=== PATIENT | male | born 2000 | race Caucasian/White ===

== ENCOUNTER → 2022-02-18 12:03 | Outpatient (CLI) | payer OTHER, SELFPAY ==
--- NOTE | 2022-02-18 12:11 | XR_ITS ---
FINAL REPORT CLINICAL HISTORY: L HIP PAIN, broken femur in 2018, no recent injury FINDINGS: LEFT HIP Two views of the left hip including an AP pelvis demonstrate no acute fracture or dislocation. The joint spaces are preserved. The visualized bony structures are well aligned. An IM gabbi is present in the left femur. No soft tissue abnormality is seen. IMPRESSION: No acute bony abnormality. Reviewed, Interpreted and Dictated by Hollis Matthew MD Transcribed by Melinda Reeves Authenticated and [facility]
--- NOTE | 2022-02-18 12:11 | XR_ITS ---
FINAL REPORT CLINICAL HISTORY: HX L FEMUR FX 2018 FINDINGS: LEFT FEMUR 2 views were obtained. There is no acute fracture or dislocation. An intramedullary gabbi is seen securing a healed fracture deformity of the mid and distal femoral diaphysis. The knee joint space is preserved. There is no soft tissue abnormality. IMPRESSION: No acute bony abnormality. Reviewed, Interpreted and Dictated by Hollis Matthew MD Transcribed by Melinda Reeves Authenticated and [facility]
== END ==
PROVIDERS: PCP Internal Medicine; Visit Provider Internal Medicine
DX: M25.552 Pain in left hip (principal); Z87.81 Personal history of (healed) traumatic fracture
CPT/HCPCS: 73502; 73552

== ENCOUNTER → 2022-05-06 12:42 | Outpatient (CLI) | payer OTHER, SELFPAY ==
[2022-05-06 13:22] LABS: Strep Scrn Group A (Rapid) Negative (Negative)
== END ==
PROVIDERS: PCP Internal Medicine; Visit Provider Internal Medicine
DX: Z20.822 Contact with and (suspected) exposure to COVID-19 (principal)
CPT/HCPCS: 87430; C9803; U0003; U0005

== ENCOUNTER 2024-07-07 10:44 | Outpatient (CLI) | payer OTHER, SELFPAY ==
--- NOTE | 2024-07-07 11:03 | ECG_ITS ---
APPROVED REPORT Exam: Resting ECG HR:91 bpm ECG Measurements Heart Rate 91 AXES VA 149 P 3 QRSd 91 QRS 70 QT 335 T -2 QTc 384 Conclusion SINUS RHYTHM NONSPECIFIC T-WAVE ABNORMALITY ABNORMAL ECG UNCONFIRMED REPORT Electronically signed by : Prince Guidry MD 07/08/2024 08:47:59
== END 2024-07-07 23:59 | disposition home or self-care (01) ==
LOC: RT 10:45
PROVIDERS: PCP Internal Medicine; Visit Provider Internal Medicine
DX: R07.89 Other chest pain (principal); Z82.49 Family history of ischemic heart disease and other diseases of the circulatory system
CPT/HCPCS: 93005

== ENCOUNTER 2024-08-11 10:07 | Outpatient (CLI) | payer OTHER, SELFPAY ==
--- NOTE | 2024-08-11 | CA_ITS ---
APPROVED REPORT EXAM: Comprehensive 2D, Doppler, and color-flow Echocardiogram Regulatory Services Consultant: HUI Shah, RVS Ht: 5 ft 7 in Wt: 327lbs BSA: 2.49 HR: 110 bpm BP: 138/88 mmHg Indications: CP, Palpitationes with anxiety Echo Enhancing Agent Comments: Patient declined IV access 2D Dimensions Left Atrium 3.00 cm LA Volume 68.10 mL LA Volume Index 26.10 mL/m2 (M/F) 16-34 M-Mode Dimensions RVDd 3.61 cm (0.9-2.6) LA Diam 3.78 cm (1.9-4.0) LVDd 3.68 cm (3.5-5.7) LVDs 2.51 cm (3.5-5.7) IVSd 0.99 cm (0.6-1.1) PWd 1.02 cm (0.6-1.1) EF (Teich) 70.50% EPSs 0.30 cm FS 39.50% EDV (Teich) 76.40 mL TAPSE 2.07 (<1.7) ESV (Teich) 22.50 mL LV Diastology E Decel Time 113 (160-240 msec) E/A Ratio 1.38 MED A' 12.20 cm/s LAT A' 4.80 cm/s Aortic Valve ZURDO Index 1.17 cm2/m2 AoV Peak Sammy. 115.0 (50-130 cm/s) AO Peak GR. 5.30 mmHg AO Mean GR. 2.70 (<5 mmHg) AO VTI 19.9 (18-25 cm) ZURDO (VTI) 3.06 (2.5-4.5 cm2) Mitral Valve MV A Velocity 58.0 (40-130 cm/s) E/A Ratio 1.38 Pulmonary Valve MN End VMAX 152.0 cm/s Left Ventricle The left ventricle is normal size. The left ventricular systolic function is normal. The left ventricular ejection fraction is within the normal range. There is normal left ventricular wall thickness. The left ventricular diastolic function is normal. LVEF is 55%. Right Ventricle The right ventricle is not very well-visualized, but grossly appears normal in size and function. Atria The left atrium size is normal. The right atrium size is normal. Aortic Valve The aortic valve opens well. Trace aortic regurgitation. There is no aortic valvular stenosis. Mitral Valve The mitral valve is normal in structure. No evidence of mitral valve stenosis. There is no mitral valve regurgitation noted. Tricuspid Valve Tricuspid valve is grossly normal in structure and function. Trace tricuspid regurgitation. There is insufficient TR jet to estimate RVSP. Pulmonic Valve The pulmonary valve is normal in structure. Trace pulmonic regurgitation. Great Vessels The aortic root is normal in size. IVC is normal in size and collapses >50% with inspiration. Pericardium There is no pericardial effusion. Other Information Study Quality: Technically Difficult Conclusion Technically difficult study due to poor acoustic windows. Normal biventricular systolic function. No significant valvular stenosis or regurgitation. Electronically signed by : Tanika Potter MD 08/17/2024 12:39:58
--- NOTE | 2024-08-11 | CA_ITS ---
APPROVED REPORT Exam: Exercise Treadmill Technologist: Eneida Prince Ht: 5 ft 8 in Wt: 325 lbs BSA: 2.51 m2 HR: 90 bpm BP: 154/89 mmHg Rhythm: NSR Stress Test Details Test: Exercise stress testing was performed using a Rohan protocol. HR Resting HR: 90 bpm Max Heart Rate (APMHR): 195 bpm Max HR Achieved: 166 bpm Target HR (85% APMHR): 166 bpm % of APMHR: 85 Recovery HR: 124 bpm HR response to stress: Normal HR response to stress BP Resting BP: 154.0/9.0 mmHg Max BP: 181.0/60.0 mmHg Recovery BP: 166.0/70.0 mmHg BP response to stress: Normal blood pressure response to stress. ECG Resting ECG: NSR Stress EC mm upsloping ST depression Clinical Exercise duration: 6:45 min Exercise capacity: 4.5 METs Stress ECG Conclusion Symptoms: No chest pain, no shortness of air. Knee pain Arrhythmias/Ectopy: PVCs ST-T Changes: [address] depression CONCLUSION: Average exercise capacity. Equivocal ECG changes at peak stress. Further evaluation of ischemia with an imaging modality is suggested, if clinically feasible and indicated. Electronically signed by : Tanika Potter MD 08/11/2024 13:00:56
== END 2024-08-11 23:59 | disposition home or self-care (01) ==
LOC: RT 10:07
PROVIDERS: PCP Internal Medicine; Visit Provider Internal Medicine
DX: R07.89 Other chest pain (principal); Z82.49 Family history of ischemic heart disease and other diseases of the circulatory system
CPT/HCPCS: 93017; 93018; 93306